=== PATIENT | male | born 1960 | race Caucasian/White ===

== ENCOUNTER 2018-02-19 04:39 | Inpatient (IN) | payer MEDICAID ==
[2018-02-19] VITALS (7 sets, daily range): BP systolic 131–154; BP diastolic 85–95
[~2018-02-19] VITALS: Ht 172.7 cm; Wt 74.4 kg
--- NOTE | 2018-02-19 06:30 | NUR ---
PT CAME TO EMERGENCY DEPT BECAUSE HE FEELS IF HE CAN ONLY USE 60% OF HIS LUNGS. PT IS AXOX4, NAD, RR EVEN AND UNLABORED. VSS.
--- NOTE | 2018-02-19 06:46 | NUR ---
LABS BEING DRAWN AT BEDSIDE.
--- NOTE | 2018-02-19 06:51 | NUR ---
xray being done at bedside
--- NOTE | 2018-02-19 07:15 | NUR ---
RECEIVED REPORT FROM JAMES PATTERSON
[2018-02-19 07:51] LABS: BASOPHILS % (AUTO) 0.1 % (0.0-2.0); EOSINOPHILS % (AUTO) 0.5 % (0.0-6.0); HEMATOCRIT 41 % (39-51); LYMPHOCYTES # (AUTO) 1.3 /CMM (0.8-4.8); LYMPHOCYTES % (AUTO) 11.9 % (20.0-44.0); MEAN CORPUSCULAR HGB CONC 34 g/dl (31.0-36.0); MEAN CORPUSCULAR VOLUME 90 fL (80-96); MONOCYTES # (AUTO) 0.7 /CMM (0.1-1.30); MONOCYTES % (AUTO) 6.5 % (2.0-12.0); NEUTROPHILS # (AUTO) 8.6 /CMM (1.8-8.9); PLATELET COUNT (AUTO) 179 /CMM (150-450); RED BLOOD CELL COUNT(AUTO) 4.55 MIL/uL (4.5-6.0); WHITE BLOOD COUNT (AUTO) 10.6 K/uL (4.3-11.0)
[2018-02-19 07:54] LABS: CALCIUM, SERUM 8.6 mg/dL (8.5-10.1); CREATININE 1.4 mg/dL (0.6-1.3); POTASSIUM 3.7 mmol/L (3.5-5.1)
[2018-02-19] MEDS ORDERED: CT SWABBABLE VALVE TRANS SET 1 EA INFUS.SET MC ONE (07:59)
[2018-02-19] MEDS ORDERED: IOHEXOL-350 100 ML VIAL IV ONE (07:59)
[2018-02-19] MEDS ORDERED: IV NS 0.9% 1,000 ML BAG IV ONE (08:00)
[2018-02-19] MEDS ORDERED: IV NS 0.9% 250 ML IV ONE (08:00)
--- NOTE | 2018-02-19 08:11 | NUR ---
OUT FOR CT PULMONARY ANGIOGRAM
[2018-02-19] MEDS ORDERED: HEPARIN SODIUM, PORCINE 5000 UNITS/1 ML VIAL ONE (08:44)
[2018-02-19] MEDS ORDERED: HEPARIN INFUSION/D5W 500 ML IV ONE ×2 (08:44→09:00)
--- NOTE | 2018-02-19 08:55 | NUR ---
DR ROSALES REFUSED TO SIGN HEPARIN NON ACS PROTOCOL, VERBALIZED TO CARRY OUT ORDER FROM [facility]AR
--- NOTE | 2018-02-19 08:56 | NUR ---
PT ACCURATE WEIGHT 168 LBS VIA BED SCALE.
[2018-02-19] MEDS ORDERED: HEPARIN SODIUM, PORCINE 5000 UNITS/1 ML VIAL IV ONE ×2 (09:00→17:30)
--- NOTE | 2018-02-19 09:02 | NUR ---
HEPARIN PROTOCOL INPUTTED BY DR ROSALES IN [facility] Addendum: 02/19/18 at 0904 by BCADELINA DRIP RATE = 18UNITS/KG/HR BOLUS 5,000 UNITS PER MD
[2018-02-19 09:14] LABS: ALBUMIN 3.3 g/dL (3.4-5.0); BILIRUBIN,DIRECT 0.2 mg/dL (0.0-0.2); BILIRUBIN,TOTAL 0.9 mg/dL (0.2-1.0); TOTAL PROTEIN, SERUM 7.1 g/dL (6.4-8.2)
--- NOTE | 2018-02-19 09:46 | NUR ---
REPORT GIVEN TO JESSICA PATTERSON, ADMITTING MD, DR JENA LEZAMA
--- NOTE | 2018-02-19 10:00 | NUR ---
RN NOTES PT RECEIVED FROM ER IN ROOM 106, A/OX4, ON RA , RESPIRATION EVEN AND UNLABORED, NO SOB NOTED, AT THIS TIME , C/O R UPPER CHEST PAIN WHEN TAKES A DEEP BREATH , PT REFUSED TO TAKE HIS PANTS OFF, MERLY HAVING ANY SKIN ISSUES, R AC IV SITE G 20 CLEAN ,DRY AND INTACT, HEPARIN AT 1350 U/HR RUNNING VA R AC IV SITE , SR UP X2, CALL LIGHT WITHIN EASY REACH, CONTINUE TO MONITOR CLOSLY.
[2018-02-19] MEDS ORDERED: MAG HYDROX/AL HYDROX/SIMETH 30 ML UDC PO PRN (10:30)
[2018-02-19] MEDS ORDERED: ONDANSETRON HCL/PF 4 MG/2 ML VIAL IVP PRN (10:30)
[2018-02-19] MEDS ORDERED: ACETAMINOPHEN 325 MG TABLET PO PRN (10:30)
[2018-02-19] MEDS ORDERED: Z GUARD REMEDY 2 OZ OINT TP PRN (10:30)
[2018-02-19] MEDS ORDERED: MAGNESIUM HYDROXIDE 30 ML UDC PO PRN (10:30)
[2018-02-19] MEDS ORDERED: HYDROCODONE/APAP 10/325MG 1 EA TABLET PO PRN (10:30)
[2018-02-19 10:50] LABS: THYROID STIMULATING HORMONE 1.698 uIU/mL (0.358-3.74)
[2018-02-19] MEDS: IV NS 0.9% 1,000 ML IV PRN ×2 (11:08→23:13)
--- NOTE | 2018-02-19 13:30 | NUR ---
RN NOTES DR MCMAHON AND JENA RODRIGUEZ MULTI PURPOSE MACHINE OPERATOR NOTIFED REGARDING POSITIVE DVT ON L LEG PER ULTRASOUND. NO NEW ORDER GIVEN , CONTINUE TO MONITOR .
[2018-02-19] MEDS: HEPARIN INFUSION/D5W 500 ML IV PRN (13:48)
--- NOTE | 2018-02-19 18:06 | NUR ---
RN NOTES PT STABLE, ON HEPARIN GTT AT 1496 U/HR RUNNING VIA R AC IV SITE , NO SIGNIFICANT CHANGES NOTED ON THIS SHIFT , WILL ENDOSE TO AUTOMATIC PROFILE SANDER OPERATOR NURSE FOR CONTINUITY OF CARE .
--- NOTE | 2018-02-19 20:00 | NUR ---
SREEDHAR/RN NOTES: RECEIVED PT. IN BED W/ HOB ELEVATED. A/O X 4. ON TELE MONITOR W/ SR @ 74. C/O SLIGHT RIGHT LOWER QUADRANT PAIN BUT STATED THAT HE GOT NORCO EARLIER WHICH HAS EASED HIS PAIN. CONTINENT OF B/B. ON HEPARIN DRIP AT 1496. NEXT PTT WILL BE 2330. W/ RAC G 20 W/ NS AT 75 ML/HR. NO S/S OF INFECTION/INFILTRATION NOTED. CALL LIGHT W/ REACH. ALL NEEDS MEET. WILL CONTINUE TO MONITOR.
--- NOTE | 2018-02-19 23:05 | NUR ---
SREEDHAR/RN NOTES: PTT 55.1. NO CHANGE IN HEPARIN DRIP PER PROTOCOL. CHARGE NURSE AWARE.
[2018-02-20] VITALS (7 sets, daily range): BP systolic 114–124; BP diastolic 68–78
[2018-02-20] MEDS: HYDROCODONE/APAP 5/325MG 1 EACH TABLET PO PRN ×2 (00:24→20:08)
[2018-02-20] MEDS ORDERED: HEPARIN INFUSION/D5W 500 ML IV ONE (02:46)
[2018-02-20] MEDS: HEPARIN INFUSION/D5W 500 ML IV PRN (02:51)
--- NOTE | 2018-02-20 05:30 | NUR ---
SREEDHAR/RN NOTES: PTT 61.2. NO CHANGE IN HEPARIN DRIP PER PROTOCOL. NO S/S OF ANY BLEEDING NOTED. CHARGE NURSE MADE AWARE.
[2018-02-20 06:06] LABS: BASOPHILS % (AUTO) 0.2 % (0.0-2.0); EOSINOPHILS % (AUTO) 1.7 % (0.0-6.0); HEMATOCRIT 38 % (39-51); HEMOGLOBIN 13.1 g/dL (13.5-17.5); LYMPHOCYTES # (AUTO) 1.6 /CMM (0.8-4.8); LYMPHOCYTES % (AUTO) 22.9 % (20.0-44.0); MEAN CORPUSCULAR HGB CONC 35 g/dl (31.0-36.0); MEAN CORPUSCULAR VOLUME 90 fL (80-96); MONOCYTES # (AUTO) 0.6 /CMM (0.1-1.30); MONOCYTES % (AUTO) 8.4 % (2.0-12.0); NEUTROPHILS # (AUTO) 4.8 /CMM (1.8-8.9); NEUTROPHILS % (AUTO) 66.8 % (43.0-81.0); PLATELET COUNT (AUTO) 179 /CMM (150-450); RED BLOOD CELL COUNT(AUTO) 4.21 MIL/uL (4.5-6.0); WHITE BLOOD COUNT (AUTO) 7.2 K/uL (4.3-11.0)
[2018-02-20 06:33] LABS: ALANINE AMINOTRANSFERASE 30 U/L (12-78); ALBUMIN 2.8 g/dL (3.4-5.0); ALKALINE PHOSPHATASE 81 U/L (46-116); ASPARTATE AMINOTRANSFERASE 20 U/L (15-37); BILIRUBIN,TOTAL 1.3 mg/dL (0.2-1.0); CALCIUM, SERUM 8.5 mg/dL (8.5-10.1); CARBON DIOXIDE 24 mmol/L (21-32); CHLORIDE 106 mmol/L (98-107); CREATININE 1.1 mg/dL (0.6-1.3); GLUCOSE 107 mg/dL (74-106); MAGNESIUM 1.9 mg/dL (1.8-2.4); POTASSIUM 3.9 mmol/L (3.5-5.1); SODIUM SERUM 141 mmol/L (136-145); TOTAL PROTEIN, SERUM 6.4 g/dL (6.4-8.2); UREA NITROGEN, BLOOD 11 mg/dL (7-18)
[2018-02-20 06:43] LABS: CHOLESTEROL 170 mg/dL (<200); HDL CHOLESTEROL 49 mg/dL (40-60); LDL 110 mg/dL (0-99); THYROID STIMULATING HORMONE 1.561 uIU/mL (0.358-3.74); TRIGLYCERIDES 99 mg/dL (30-150)
--- NOTE | 2018-02-20 07:40 | NUR ---
SREEDHAR/RN NOTES: REPORT GIVEN TO NEXT SHIFT NURSE FOR DAT.
[2018-02-20] MEDS ORDERED: CT SWABBABLE VALVE TRANS SET 1 EA INFUS.SET MC ONE (11:38)
[2018-02-20] MEDS ORDERED: IV NS 0.9% 250 ML IV ONE (11:38)
[2018-02-20] MEDS ORDERED: IOHEXOL-300 100 ML VIAL IV ONE (11:38)
[2018-02-20] MEDS: RIVAROXABAN 15 MG TABLET PO SCH ×2 (14:45→17:46)
--- NOTE | 2018-02-20 17:41 | NUR ---
Patient lives alone locally. He is ambulatory and independent with adl's. He is employed and physically active. He plan to return home once discharge. Addendum: 02/20/18 at 1742 by ULYSSES RICH RN Amended: Links added.
--- NOTE | 2018-02-20 19:30 | NUR ---
RECEIVED PATIENT AMBULATING WITH STEADY GAIT. AO X 3, ABLE TO MAKE NEED KNOWN. NO ACUTE DISTRESS NOTED. MONITORED FOR PAIN. IV SITE PATENT, INTACT; FLUSHED. SAFETY REMINDERS GIVEN. ON LOW BED WITH BILATERAL UPPER SIDE RAILS UP. CALL BRUCE WITHIN EASY REACH. WILL CONTINUE TO MONITOR.
[2018-02-21] MEDS: HYDROCODONE/APAP 5/325MG 1 EACH TABLET PO PRN (02:14)
--- NOTE | 2018-02-21 06:00 | NUR ---
PATIENT IN BED ASLEEP, EASILY AROUSABLE. RESPIRATIONS EVEN. NO SIGN OF PAIN NOTED. NEEDS ATTENDED. SAFETY PRECAUTIONS AND COMFORT MEASURES IN PLACE. WILL GIVE REPORT TO DAY SHIFT FOR CONTINUITY OF CARE.
[2018-02-21 07:53] LABS: ALBUMIN 2.9 g/dL (3.4-5.0); BILIRUBIN,DIRECT 0.1 mg/dL (0.0-0.2); BILIRUBIN,TOTAL 0.8 mg/dL (0.2-1.0); CALCIUM, SERUM 8.8 mg/dL (8.5-10.1); CREATININE 1.1 mg/dL (0.6-1.3); POTASSIUM 3.9 mmol/L (3.5-5.1); TOTAL PROTEIN, SERUM 6.7 g/dL (6.4-8.2)
--- NOTE | 2018-02-21 07:56 | NUR ---
DIRECTOR CARDIOVASCULAR OPENING NOTES: RECEIVED REPORT FROM PN NURSE.PTIN BED W/ HOB ELEVATED. A/O X 4. C/O SLIGHT RIGHT LOWER CHEST PAIN BUT STATED THAT NO PAIN MEDS NEEDED AT THIS TIME,PAIN GETTING BETTER SINCE ADMISSION . CONTINENT OF B/B. W/ RAC G 20 NO S/S OF INFECTION/INFILTRATION NOTED. CALL LIGHT W/ REACH. BED IS LOCKED AND IN LOW POSITION. WILL CONTINUE TO MONITOR.
[2018-02-21 08:00] VITALS: BP 114/76
[2018-02-21 08:07] LABS: *ANTITHROMBIN III AG 90 % (72-124)
[2018-02-21] MEDS: RIVAROXABAN 15 MG TABLET PO SCH (08:38)
[2018-02-21] MEDS: IV NS 0.9% 1,000 ML IV PRN (08:41)
[2018-02-21 10:21] LABS: BASOPHILS % (AUTO) 0.5 % (0.0-2.0); EOSINOPHILS % (AUTO) 2.7 % (0.0-6.0); HEMATOCRIT 40 % (39-51); HEMOGLOBIN 13.6 g/dL (13.5-17.5); LYMPHOCYTES # (AUTO) 1.5 /CMM (0.8-4.8); LYMPHOCYTES % (AUTO) 24.3 % (20.0-44.0); MEAN CORPUSCULAR HGB CONC 34 g/dl (31.0-36.0); MEAN CORPUSCULAR VOLUME 90 fL (80-96); MONOCYTES # (AUTO) 0.4 /CMM (0.1-1.30); NEUTROPHILS % (AUTO) 65.5 % (43.0-81.0); PLATELET COUNT (AUTO) 203 /CMM (150-450); RED BLOOD CELL COUNT(AUTO) 4.41 MIL/uL (4.5-6.0); WHITE BLOOD COUNT (AUTO) 6.2 K/uL (4.3-11.0)
[2018-02-21] MEDS ORDERED: RIVA10TA PO (10:57)
[2018-02-21] MEDS ORDERED: Rivaroxaban PO (10:57)
--- NOTE | 2018-02-21 11:00 | NUR ---
MS RN OPENING NOTE SEEN BY ,UPDATED ABOUT PATIENT CONDITION WITH LABS.OK TO D/C HOME WITH MEDS.PATIENT REFUSING IVF.EXPLAINED RISK AND BENEFIT.STILL REFUSING.GOT DISCHARGE ORDER .WILL CONTINUE TO MONITOR.
--- NOTE | 2018-02-21 12:00 | NUR ---
HYDROELECTRIC STATION OPERATOR NOTE PATIENT D/C HOME IN STABLE CONDITION.NO SOB NO DISTRESS NOTED.TOOK ALL BELONGINGS.EXIT CARE GIVEN.PATIENT VERBALIZED UNDERSTANDING.EDUCATION GIVEN REGARDING NEW PRESCRIPTION AND CONDITION.IV REMOVED.MINIMAL BLEEDING NOTED.PRESSURE DRESSING APPLIED.PATIENT DRIVING HOME BY HIMSELF . ,MADE AWARE.OK TO DRIVE HIMSELF.MANAGER SECONDARY ACCOMPANIED PATIENT TO THE CAR.
[2018-02-22 12:06] LABS: *DILUTE PROTHROMBIN TIME (dPT) 51.5 sec (0.0-55.0); *PTT-LA 58.1 sec (0.0-51.9); *THROMBIN TIME 18.3 sec (0.0-23.0); *dPT CONFIRM RATIO 0.85 Ratio (0.00-1.40); *dRVVT 47.6 sec (0.0-47.0); PROTEIN C ACTIVITY 103 % (73-180)
[2018-02-24 01:09] LABS: *PTT-LA MIX 54.4 sec (0.0-48.9)
[2018-02-24 03:10] LABS: *INTERPRETATION Comment: (.)
== END 2018-02-21 12:00 | disposition home or self-care (01) | DRG 134 ==
LOC: ER 04:47 → TELE-TD 09:35 → MEDSG1 02-20 13:51
PROVIDERS: ADMIT Nurse Practitioner Acute Care; ATTEND Nurse Practitioner Acute Care
DX: I26.99 Other pulmonary embolism without acute cor pulmonale (principal); N17.0 Acute kidney failure with tubular necrosis; M94.0 Chondrocostal junction syndrome [Tietze]; Z98.890 Other specified postprocedural states; Z82.0 Family history of epilepsy and other diseases of the nervous system; Z82.49 Family history of ischemic heart disease and other diseases of the circulatory system
CPT/HCPCS: 36415; 71045-TC; 71260-TC; 80048-TC; 80053-TC; 80061-TC; 80076-TC; 83735-TC; 84100-TC; 84155-TC; 84443-TC; 84484-TC; 85025-TC; 85300; 85301; 85303; 85378-TC; 85610-TC; 85613; 85670; 85705; 85730-TC; 85732; 86850-TC; 87081-TC; 93307-TC; 93970-TC; G0378; J1644; J7030; J7050; Q9967